=== PATIENT | male | born 1985 | race Caucasian/White ===

== ENCOUNTER 2016-11-29 21:32 | Emergency (ER) | payer OTHER ==
--- NOTE | ~2016-11-29 | ER ---
PATIENT'S NAME: LULÚ WOODSON [facility] AGE: 31 Y [address] ROOM: [place] [address] LOCATION: [facility] ADMIT DATE: 11/29/2016 ER/Outpatient Report DISCHARGE DATE: 11/29/2016 FAMILY PHYSICIAN: PHYSICIAN, NO ATTENDING PHYSICIAN: Wojciech Vazquez Time of Arrival: 2135 hours. Time of Evaluation: 2145 hours. CHIEF COMPLAINT: Right eye pain. 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 States tonight after working around 6 o'clock, he started feeling like there was something underneath his eyelid. He has some discomfort when he blinks. No vision disturbance. No drainage from his eye. He did flush his eye but continues to have irritation. ALLERGIES: NO KNOWN ALLERGIES. MEDICATIONS: No current medications. PAST MEDICAL HISTORY: Benign. PAST SURGICAL HISTORY: Negative. SOCIAL HISTORY: Denies use of tobacco or drugs. Drinks alcohol on occasional basis. REVIEW OF SYSTEMS: All negative other than those mentioned in the HPI. PHYSICAL EXAMINATION: VITAL SIGNS: He weighs 82 kg, blood pressure is 124/69, pulse of 84, O2 saturation is 97% on room air. GENERAL: He is awake, alert, and oriented x4. SKIN: [place], warm, and dry. RESPIRATIONS: Even and nonlabored. EYES: Pupils are equal and reactive to light. Extraocular movement is intact. No conjunctivitis is noted. Upper eyelid was flipped. No foreign object is seen. Alcaine was used to anesthetize the eye. Fluorescein strip PATIENT'S NAME: LULÚ WOODSON [facility] AGE: 31 Y [address] ROOM: [place] [address] LOCATION: [facility] ADMIT DATE: 11/29/2016 ER/Outpatient Report DISCHARGE DATE: 11/29/2016 FAMILY PHYSICIAN: PHYSICIAN, NO ATTENDING PHYSICIAN: Wojciech Vazquez was used to stain the eye. No pooling of the stain was noted. No riggins lamp available to visualize. No foreign object in the eyes is noted. Eye was then rinsed well with saline. IMPRESSION: Eye pain due to possible corneal abrasion. PLAN: A prescription was written for tobramycin ophthalmic drops one drop t.i.d. for the next 3 to 5 days. If symptoms persist or worsen, should follow up with his primary provider or return to the ER. He verbalized understanding. MEHRDAD MARTINEZ APRN FOR MD PATRICK FIGUEROA/miguel /[id number] d: 11/30/16 0301 t: 12/02/16 1820, OUTPATIENT REPORT
== END 2016-11-29 22:00 | disposition disaster alternative care site (69) ==
LOC: GMED 21:32
DX: H57.11 Ocular pain, right eye (principal)